=== PATIENT | female | born 1965 | race American Indian/Alaskan Native ===

== ENCOUNTER 2017-08-31 08:49 | Outpatient (CLI) | payer MEDICARE ==
--- NOTE | 2017-08-31 09:16 | XRay Report ---
RIGHT KNEE RADIOGRAPHS INDICATION: Right knee pain. COMPARISON: None similar at this institution. FINDINGS: Standing AP, lateral, oblique and sunrise view of the right knee, 4 images demonstrate prior replacement with intact articulation. Expected postsurgical patellar appearance. Few small suprapatellar calcifications. CONCLUSION: Replaced right knee without acute radiographic abnormality, as described. Thank you for the opportunity to participate in this patient's care.
== END 2017-08-31 08:50 | disposition home or self-care (01) ==
LOC: SPVIMAG 08:49
PROVIDERS: ATTEND Orthopaedic Surgery
DX: M25.861 Other specified joint disorders, right knee (principal); Z96.651 Presence of right artificial knee joint